=== PATIENT | female | born 1935 | race Caucasian/White ===

== ENCOUNTER 2017-03-21 21:32 | Observation (INO) ==
[2017-03-21 22:21] LABS: Prothrombin Time 10.2 Seconds (9.4-12.1)
[2017-03-21 22:22] LABS: Bilirubin,Urine Negative (Negative); Blood,Urine Negative (Negative); Clarity,Urine Clear (Clear); Color,Urine Yellow (Yellow); Glucose,Urine (UA) Normal (Normal); Ketones,Urine Negative (Negative); Leukocyte Esterase,Urine Trace (Negative); Nitrite,Urine Negative (Negative); Protein,Urine Negative (Neg-Trace); Specific Gravity,Urine 1.007 (1.010-1.025); Urobilinogen,Urine Normal (Normal)
[2017-03-21 22:23] LABS: Activated Partial Thrombo Time 30.6 Seconds (26.0-36.0)
[2017-03-21 22:24] LABS: Bacteria,Urine None Seen per hpf (None-Few); Hyaline Casts,Urine None Seen per lpf (None-Few); RBC,Urine 0-3 per hpf (0-3); Squamous Epithelial Cell,Urine Moderate per lpf (None-Few)
[2017-03-21 22:25] LABS: Basophils # 0.1 K/mcL (0.0-0.2); Basophils % 0.6 %; Eosinophils # 0.3 K/mcL (0.0-0.6); Hematocrit 47.7 % (35.3-44.9); Hemoglobin 15.3 g/dL (11.5-15.4); Immature Granulocytes % 0.4 % (0-4); Lymphocytes # 1.9 K/mcL (0.6-4.6); Lymphocytes % 18.3 %; Mean Corpuscular HGB Conc 32.1 g/dL (31.6-35.5); Mean Corpuscular Hemoglobin 28.5 pg (28.0-33.3); Mean Platelet Volume 10.4 fL (9.4-12.4); Monocytes # 1.1 K/mcL (0.0-1.3); Monocytes % 10.7 %; Neutrophils # 6.9 K/mcL (1.6-8.9); Platelet Count 224 K/mcL (140-400); Red Blood Count 5.36 M/mcL (3.82-4.97); Red Cell Distribution Width 15.3 % (11.5-14.5)
--- NOTE | 2017-03-21 22:25 | Emergency Department Note ---
Disposition Clinical Impression: Atrial fibrillation Qualifiers: Atrial fibrillation type: unspecified Qualified Code(s): I48.91 - Unspecified atrial fibrillation Chest pain Qualifiers: Chest pain type: unspecified Qualified Code(s): R07.9 - Chest pain, unspecified Disposition: Admitted As Inpatient Condition: Good Referrals: Majo Freedman CNP [Primary Care Provider] - Forms: ED Satisfaction Letter Time of Disposition: 23:16 Chest Pain HPI - General Chief Complaint: ED Chest Pain Stated Complaint: chest pain/high bp took nitro at 845 Time Seen by Provider: 03/21/17 21:44 Source: patient Mode of arrival: ambulatory Limitations: no limitations Vital Signs Reviewed: Yes Nursing Notes Reviewed: Yes - History of Present Illness HPI Narrative: Patient presents to the ED for the chief complaint of palpitations and chest pain. Patient states she was getting ready for bed this evening and laid down around 9 :00 and started feeling a heaviness or pressure in her lower sternum. She had no other symptoms. This is no shortness of breath, nausea, vomiting. No previous history of atrial fibrillation but has been having palpitations. Does have a previous history of coronary artery disease and high blood pressure, but no CHF. Severity scale (1-10): 4 - Related Data Home Medications Medication Instructions Recorded Confirmed Albuterol Sulfate [Albuterol 1 puff IH QID PRN 02/23/15 02/23/15 Inhaler] Aspirin Enteric Coated [Aspirin EC] 81 mg PO DAILY 02/23/15 02/23/15 Carvedilol [Coreg] 12.5 mg PO BIDWM 02/23/15 02/23/15 Docusate [Colace] 100 mg PO BID 02/23/15 02/23/15 Levothyroxine [Synthroid] 100 mcg PO 0630 02/23/15 02/23/15 Lisinopril [Zestril] 20 mg PO BID 02/23/15 02/23/15 Raloxifene [Evista] 60 mg PO DAILY 02/23/15 02/23/15 Simvastatin [Zocor] 20 mg PO HS 02/23/15 02/23/15 cloNIDine HCl [CloNIDine HCl] 0.1 mg PO BID PRN 02/23/15 02/23/15 Previous Rx's Medication Instructions Recorded Hydrocodone/Acetaminophen [[place] 0.5 - 1 each PO QID PRN #15 tablet 02/23/15 5-325 Tablet] Allergies Allergy/AdvReac Type Severity Reaction Status Date / Time No Known Allergies Allergy Verified 03/21/17 21:53 All systems ED: reviewed and negative except as stated. Constitutional: Denies: fever Eyes: Denies: vision change Cardiovascular: Reports: chest pain, palpitations. Denies: dyspnea on exertion Respiratory: Denies: dyspnea Gastrointestinal: Denies: abdominal pain, vomiting Chest Pain PMH - Past Medical History Medical history: Reports: cancer, CHF, coronary artery disease, hyperlipidemia, hypertension, myocardial infarction, thyroid disease Surgical history: Reports: coronary bypass (CABG), other Psychiatric history: Reports: no psych history - Social History Smoking Status: Never smoker Alcohol use: Reports: none Drug use: Reports: none Physical Exam - General Limitations: no limitations General appearance: alert, in no apparent distress - Head Head exam: atraumatic, normocephalic, normal inspection - Eye Eye exam: Present: normal appearance, PERRL, EOMI - ENT ENT exam: normal exam, normal oropharynx, mucous membranes moist - Neck Neck exam: Present: normal inspection, full ROM, trachea midline - Chest Chest inspection: Present: normal inspection, symmetric chest wall rise - Respiratory Respiratory exam: Present: normal lung sounds bilaterally - Cardiovascular Cardiovascular exam: Present: regular rate, irregular rhythm, normal heart sounds. Absent: normal rhythm - Abdominal Exam Abdominal exam: Present: soft, Non-Tender. Absent: tenderness, distention, guarding, rebound, rigidity - Extremities Exam Extremities exam: Present: normal inspection, full ROM, normal capillary refill. Absent: tenderness, pedal edema - Expanded Lower Extremity Exam Hip/Pelvis exam: Present: pelvis stable - Neurological Exam Neurological exam: Present: alert, oriented X3 - Psychiatric Psychiatric exam: Present: normal affect, normal mood - Skin Skin exam: Present: warm, dry, intact, normal color Course Course Narrative: patient with new onset a-fib which is rate controlled. Will call cards, get labs, and admit. - Consultations Consultation #1: spoke with Dr. Woo, wanted to anti-coagulate due to CHADS-VASC score of 5 and ATRIA of 7. Will give lovenox and admit. Vital Signs Temperature 97.7 F 03/21/17 21:50 Pulse Rate 99 03/21/17 21:50 Respiratory Rate 20 03/21/17 21:50 Blood Pressure 195/106 03/21/17 21:50 O2 Sat by Pulse Oximetry 96 03/21/17 21:50 Temperature 97.7 F 03/21/17 21:50 Pulse Rate 99 03/21/17 21:50 Respiratory Rate 20 03/21/17 21:50 Blood Pressure 195/106 03/21/17 21:50 O2 Sat by Pulse Oximetry 96 03/21/17 22:02 Oxygen Delivery Oxygen Delivery Room Air Chest Pain - Lab Data Result diagrams: 03/21/17 22:06 03/21/17 22:06 Lab Results 03/21/17 03/21/17 03/21/17 Range/Units 22:05 22:06 22:06 WBC 10.3 (4.3-11.1) K/mcL RBC 5.36 H (3.82-4.97) M/mcL Hgb 15.3 (11.5-15.4) g/dL Hct 47.7 H (35.3-44.9) % MCV 89.0 (83.0-100.0) fL MCH 28.5 (28.0-33.3) pg MCHC 32.1 (31.6-35.5) g/dL RDW 15.3 H (11.5-14.5) % Plt Count 224 (140-400) K/mcL MPV 10.4 (9.4-12.4) fL Immature Gran % 0.4 (0-4) % Seg Neutrophils % 67.0 % Lymphocytes % 18.3 % Monocytes % 10.7 % Eosinophils % 3.0 % Basophils % 0.6 % Neutrophils # 6.9 (1.6-8.9) K/mcL Lymphocytes # 1.9 (0.6-4.6) K/mcL Monocytes # 1.1 (0.0-1.3) K/mcL Eosinophils # 0.3 (0.0-0.6) K/mcL Basophils # 0.1 (0.0-0.2) K/mcL PT 10.2 (9.4-12.1) Seconds INR 1.0 APTT 30.6 (26.0-36.0) Seconds Sodium (136-145) mEq/L Potassium (3.5-4.5) mEq/L Chloride (98-109) mEq/L Carbon Dioxide (19-29) mEq/L BUN (7-20) mg/dL Creatinine (0.57-1.11) mg/dL Est GFR ( Amer) (> 60) Est GFR (Non-Af Amer) (> 60) BUN/Creatinine Ratio (6-26) Glucose (70-99) mg/dL Calculated Osmolality (280-300) Calcium (8.6-10.8) mg/dL Magnesium (1.6-2.6) mg/dL Troponin I (0-0.03) ng/mL TSH (0.350-4.840) mcIU/mL Urine Color Yellow (Yellow) Urine Clarity Clear (Clear) Urine pH 7.0 (5.0-8.0) pH Units Ur Specific [place] 1.007 L (1.010-1.025) Urine Protein Negative (Neg-Trace) mg/dL Urine Glucose (UA) Normal (Normal) mg/dL Urine Ketones Negative (Negative) mg/dL Urine Blood Negative (Negative) Urine Nitrite Negative (Negative) Urine Bilirubin Negative (Negative) Urine Urobilinogen Normal (Normal) mg/dL Ur Leukocyte Esterase Trace H (Negative) Urine Microscopic RBC 0-3 (0-3) per hpf Urine Microscopic WBC 3-5 H (0-3) per hpf Ur Squamous Epith Cells Moderate H (None-Few) per lpf Urine Bacteria None Seen (None-Few) per hpf Hyaline Casts None Seen (None-Few) per lpf Ur Culture Indicated? YES A (NO) 03/21/17 03/21/17 Range/Units 22:06 22:06 WBC (4.3-11.1) K/mcL RBC (3.82-4.97) M/mcL Hgb (11.5-15.4) g/dL Hct (35.3-44.9) % MCV (83.0-100.0) fL MCH (28.0-33.3) pg MCHC (31.6-35.5) g/dL RDW (11.5-14.5) % Plt Count (140-400) K/mcL MPV (9.4-12.4) fL Immature Gran % (0-4) % Seg Neutrophils % % Lymphocytes % % Monocytes % % Eosinophils % % Basophils % % Neutrophils # (1.6-8.9) K/mcL Lymphocytes # (0.6-4.6) K/mcL Monocytes # (0.0-1.3) K/mcL Eosinophils # (0.0-0.6) K/mcL Basophils # (0.0-0.2) K/mcL PT (9.4-12.1) Seconds INR APTT (26.0-36.0) Seconds Sodium 143 (136-145) mEq/L Potassium 3.7 (3.5-4.5) mEq/L Chloride 105 (98-109) mEq/L Carbon Dioxide 27 (19-29) mEq/L BUN 17 (7-20) mg/dL Creatinine 1.05 (0.57-1.11) mg/dL Est GFR ( Amer) > 60 (> 60) Est GFR (Non-Af Amer) 50 L (> 60) BUN/Creatinine Ratio 16 (6-26) Glucose 99 (70-99) mg/dL Calculated Osmolality 298 (280-300) Calcium 10.0 (8.6-10.8) mg/dL Magnesium 2.2 (1.6-2.6) mg/dL Troponin I 0.01 (0-0.03) ng/mL TSH 0.980 (0.350-4.840) mcIU/mL Urine Color (Yellow) Urine Clarity (Clear) Urine pH (5.0-8.0) pH Units Ur Specific [place] (1.010-1.025) Urine Protein (Neg-Trace) mg/dL Urine Glucose (UA) (Normal) mg/dL Urine Ketones (Negative) mg/dL Urine Blood (Negative) Urine Nitrite (Negative) Urine Bilirubin (Negative) Urine Urobilinogen (Normal) mg/dL Ur Leukocyte Esterase (Negative) Urine Microscopic RBC (0-3) per hpf Urine Microscopic WBC (0-3) per hpf Ur Squamous Epith Cells (None-Few) per lpf Urine Bacteria (None-Few) per hpf Hyaline Casts (None-Few) per lpf Ur Culture Indicated? (NO) S.B.A.R. - S.B.A.R. Situation: Demographics, MOA Background: Presenting Complaint, Relevant PMH, Meds, & Allergies Assessment: Vital Signs, Course and respsone to treatment, Exam Concerns, Patient/Family Expectation, Pertinant Lab Results, Outstanding Labs Recommendation: Barrier(s) to disposition, Recommendation based on pending studies, treatments, or consults [email or web address] Report Given to: Dr. Huy Lock Repor Time: 23:15
[2017-03-21 22:30] LABS: BUN/Creatinine Ratio 16 (6-26); Blood Urea Nitrogen 17 mg/dL (7-20); Carbon Dioxide 27 mEq/L (19-29); Chloride 105 mEq/L (98-109); Glucose 99 mg/dL (70-99); Magnesium 2.2 mg/dL (1.6-2.6); Osmolality,Calculated 298 (280-300); Potassium 3.7 mEq/L (3.5-4.5); Sodium 143 mEq/L (136-145); eGFR For African Americans > 60 (> 60); eGFR For Non-African Americans 50 (> 60)
[2017-03-21] MEDS ORDERED: *HR* Enoxaparin 60 MG/0.6 ML SYRINGE SQ STA (22:40)
--- NOTE | 2017-03-21 23:02 | Emergency Department Note ---
START Narrative - START START: I examined this patient and my medical decision-making was reviewed with the Resident Physician. I agree with the documented findings, disposition and treatment plan as described except to the extent set forth below. 82-year-old female presents with a new onset A. fib. Her rate is controlled at this time. We did consult with cardiology and they recommended Lovenox. Patient will need to be admitted for further workup. Her labs and chest x-ray are unremarkable.
--- NOTE | 2017-03-22 03:19 | Event Note ---
Date of Encounter: 03/22/17 Time of Encounter: 03:16 Patient and examined with medical device sales consultant. Patient was admitted for concern of atrial fibrillation. However I have reviewed a electrocardiogram and the monitor and I have not seen any evidence of atrial fibrillation. Patient does have an irregular heart rhythm which appears to be either due to wandering atrial pacemaker versus respiratory sinus arrhythmia. We check thyroid functions, echocardiogram. I will hold off anticoagulanting the patient.
[2017-03-22] MEDS ORDERED: Naloxone 0.4 MG/ML INJ IVP PRN (03:21)
[2017-03-22] MEDS ORDERED: 0.9 % Sodium Chloride 1,000 ML IVC SCH (03:30)
--- NOTE | 2017-03-22 03:56 | Internal Med History&Physical ---
Date of Encounter: 03/22/17 Time of Encounter: 01:00 Assessment and Plan (1) Irregular heart rhythm Current visit: Yes Status: Acute Patient had an irregular heart rhythm upon arrival to the emergency department. -EKG demonstrated an irregular rhythm, but it does appear that P waves are present. -Possible wandering atrial pacemaker or sinus arrhythmia. -Serial troponins 2. -Continuous telemetry. -TSH and free T4. -Potassium supplement, 10 mg. -Echocardiogram. (2) Chest pain Current visit: Yes Status: Acute Patient's chest pain was described as a heaviness in the lower portion of her sternum. -Since admission to the hospital, patient's chest pain has decided. -EKG did not show any evidence of ST elevation. -Patient does have a history of [place]. -Serial troponins will be drawn. -Continuous telemetry. Qualifiers: Chest pain type: unspecified Qualified Code(s): R07.9 - Chest pain, unspecified (3) Hypertension Current visit: Yes Status: Acute Patient has a known history of hypertension. -Patient is currently taking Coreg and lisinopril. -Patient's medications have not yet been reconciled, as they have not been able to confirm her current medication list. -Patient does not have up-to-date list at this time. -Obtain updated list from pharmacy in the morning. Qualifiers: Qualified Code(s): I10 - Essential (primary) hypertension (4) DVT prophylaxis Current visit: Yes Status: Acute Lovenox 40 mg daily. Internal Medicine - H&P: HPI Chief complaint: Chest pain Admitted From: Home History of present illness: Ms. Coyne is a 82 year old female with past medical history of CHF, CAD, hyperlipidemia, hypertension, [place], thyroid disease presented to the emergency department with the chief complaint of palpitations and chest pain. Patient notes that she was getting ready for bed during the evening and late her head down at approximately 9:00 he started to feel a heaviness or pressure in her lower sternum. Patient had no other symptoms. She did not having any nausea, vomiting, fever, chills, or shortness of breath. Upon arrival to the ER, chest x-ray and EKG were performed. Chest x-ray was negative, and an EKG showed an irregular rhythm which was initially believed to be atrial fibrillation. Per the recommendation of cardiology, patient was given Lovenox 50 mg subcutaneous. Patient has no history of irregular heartbeats. Upon further review of EKG, it appears that P waves are present. Diagnosis is likely wandering atrial pacemaker or sinus arrhythmia. Patient states that her pain has improved since admission. Patient is currently rate controlled. She has no complaints at this time. Past Med Surg Social Fam HX - Past Medical History Medical history: cancer, CHF, coronary artery disease, hyperlipidemia, hypertension, myocardial infarction, thyroid disease Psychiatric history: no psych history - Past Surgical History Surgical History: coronary bypass (CABG), other - Social History Smoking Status: Former smoker Smokeless Tobacco Status: No Alcohol use: none Drug use: none - Family History Mother Hx Family Endocrine Disorder: Yes (DIABETES MELLITUS.) Internal Medicine - H&P: Meds Albuterol Sulfate [Albuterol Inhaler] 1 puff IH QID PRN 02/23/15 [History] Aspirin Enteric Coated [Aspirin EC] 81 mg PO DAILY 02/23/15 [History] Carvedilol [Coreg] 12.5 mg PO BIDWM 02/23/15 [History] Docusate [Colace] 100 mg PO BID 02/23/15 [History] Hydrocodone/Acetaminophen [[place] 5-325 Tablet] 0.5 - 1 each PO QID PRN #15 tablet 02/23/15 [Rx] Levothyroxine [Synthroid] 100 mcg PO 0630 02/23/15 [History] Lisinopril [Zestril] 20 mg PO BID 02/23/15 [History] Raloxifene [Evista] 60 mg PO DAILY 02/23/15 [History] Simvastatin [Zocor] 20 mg PO HS 02/23/15 [History] cloNIDine HCl [CloNIDine HCl] 0.1 mg PO BID PRN 02/23/15 [History] 3 Allergy/AdvReac Type Severity Reaction Status Date / Time No Known Allergies Allergy Verified 03/21/17 21:53 All Systems PM: A 10-system review of systems was performed and is negative for pertinent findings except as documented above in the HPI. - Constitutional Constitutional: no chills, no fever(s), no night sweats - EENT Eyes: no change in vision, no discharge, no pain, no photophobia Ears: no ear discharge, no ear pain, no tinnitus Nose, mouth and throat: no dysphagia, no nasal discharge, no neck pain, no sore throat - Cardiovascular Cardiovascular ROS IM: no chest pain, no diaphoresis, no dyspnea, no lightheadedness, no palpitations, no syncope - Respiratory Respiratory: no cough, no dyspnea, no wheezing, no excessive phlegm production - Gastrointestinal Gastrointestinal: no abdominal pain, no diarrhea, no hematemesis, no hematochezia, no melena, no nausea, no vomiting - Genitourinary Genitourinary: no change in urinary stream, no dysuria, no flank pain, no hematuria - Musculoskeletal Musculoskeletal ROS IM: no numbness, no tingling - Integumentary Integumentary IM: no rash, no unusual bruising - Neurological Neurological ROS: no confusion, no convulsions, no focal weakness, no numbness, no tingling, no tremor(s) - Hematologic/Lymphatic Hematologic/Lymphatic: no easy bruising - Constitutional Vitals: Temp Pulse Resp BP Pulse Ox 97.7 F 74 15 144/77 94 03/22/17 03:14 03/22/17 03:14 03/22/17 03:14 03/22/17 03:14 03/22/17 03:14 - Head Head exam: Present: atraumatic, normocephalic - Eye Eye exam: Present: PERRL, conjuntiva pink, sclera anicteric Pupils: Present: PERRL - Neck Neck exam general surgery: Present: supple, trachea midline. Absent: lymphadenopathy - Respiratory Respiratory exam: Present: CTAB. Absent: accessory muscle use, rales, rhonchi, wheezes - Cardiovascular Cardiovascular exam: Present: RRR, +S1, +S2. Absent: diastolic murmur, gallop, rubs, systolic murmur - GI/Abdominal GI/Abdominal exam: Present: normal bowel sounds, soft, no peritoneal signs. Absent: distended, tenderness - Extremities Exam Extremities exam: Present: warm, radial pulses palpable and symmetrical. Absent : calf tenderness, cyanotic, pedal edema - Neurological Exam Neurological exam: Present: CN II-XII intact, oriented X3, no focal deficits. Absent: pronater drift, facial droop, speech deficit - Skin Skin exam: Present: dry, intact Internal Med - H&P Results - Labs CBC & Chem 7: 03/21/17 22:06 03/21/17 22:06
[2017-03-22 05:14] LABS: BUN/Creatinine Ratio 16 (6-26); Blood Urea Nitrogen 15 mg/dL (7-20); Calcium 9.2 mg/dL (8.6-10.8); Carbon Dioxide 27 mEq/L (19-29); Chloride 107 mEq/L (98-109); Chol/HDL Ratio 2.3 (0-4.9); Cholesterol 110 mg/dL (< 200); Glucose 94 mg/dL (70-99); HDL Cholesterol 47 mg/dL (40-59); LDL Cholesterol,Calculated 45 mg/dL (0-99); Osmolality,Calculated 295 (280-300); Potassium 3.5 mEq/L (3.5-4.5); Sodium 142 mEq/L (136-145); Triglycerides 89 mg/dL (< 150); eGFR For African Americans > 60 (> 60); eGFR For Non-African Americans 59 (> 60)
[2017-03-22 05:37] LABS: Thyroid Stimulating Hormone 0.51 mcIU/mL (0.350-4.840)
[2017-03-22] MEDS ORDERED: *HR* Enoxaparin 40 MG/0.4 ML SYRINGE SQ SCH (06:00)
[2017-03-22] MEDS ORDERED: Aspirin Enteric Coated 81 MG Tablet PO SCH (09:00)
--- NOTE | 2017-03-22 09:40 | Event Note ---
Date of Encounter: 03/22/17 Time of Encounter: 09:36 - Cardiology Event Note Cardiology consulted for atrial fibrillation. EKG reviewed with resident and Dr. Lawton. EKG shows SR with frequent PAC. 24 hour telemetry review completed. No afib seen. Patiyunier has NSR with PAC. No bradycardia or pauses. Recommended increase in beta-chris and out-pt f/u. [facility] will coordinate f/u in 2 weeks. Please call with changes or questions.
--- NOTE | 2017-03-22 11:32 | Discharge Summary ---
<Rafaela Oakley - Last Filed: 03/22/17 11:52> Date of Encounter: 03/22/17 Time of Encounter: 11:30 - Discharge Diagnosis (1) Irregular heart rhythm Priority: Primary Status: Acute (2) Chest pain Priority: Primary Status: Resolved Comments: chest pressure Qualifiers: Chest pain type: unspecified Qualified Code(s): R07.9 - Chest pain, unspecified; R07.8 - Other chest pain (3) Hypertension Priority: Secondary Status: Chronic Qualifiers: Hypertension type: essential hypertension Qualified Code(s): I10 - Essential (primary) hypertension - Discharge Medications Prescriptions: Carvedilol [Coreg] 25 mg PO BIDWM #60 tablet Nitroglycerin [Nitrostat] 0.4 mg SL Q5-6MIN PRN #1 bottle PRN Reason: Chest Pain Home Medications: Albuterol Sulfate [Albuterol Inhaler] 1 puff IH QID PRN 02/23/15 [History] Aspirin Enteric Coated [Aspirin EC] 81 mg PO DAILY 02/23/15 [History] Levothyroxine [Synthroid] 100 mcg PO 0630 02/23/15 [History] Lisinopril [Zestril] 20 mg PO BID 02/23/15 [History] Raloxifene [Evista] 60 mg PO DAILY 02/23/15 [History] Simvastatin [Zocor] 20 mg PO HS 02/23/15 [History] Carvedilol [Coreg] 25 mg PO BIDWM #60 tablet 03/22/17 [Rx] Isosorbide MONOnitrate (24 HR) [Imdur] 30 mg PO DAILY 03/22/17 [History] Nitroglycerin [Nitrostat] 0.4 mg SL Q5-6MIN PRN #1 bottle 03/22/17 [Rx] amLODIPine [Norvasc] 5 mg PO DAILY 03/22/17 [History] Allergies/Adverse Reactions: 3 Allergy/AdvReac Type Severity Reaction Status Date / Time No Known Allergies Allergy Verified 03/21/17 21:53 Procedures/tests Complete & Pending: Procedures Performed prior 72 hours Category Date Time Status EV echocardiogram Routine Y 03/22/17 03:32 Ordered Date of admission: 03/22/17 03:22 Primary care physician: Majo Freedman CNP Discharging clinician: Rafaela Oakley Anticipated date of discharge: 03/22/17 - Patient Status Disposition: Home, Self-Care Condition: Good Functional capacity at discharge: independent ambulation Overall status at discharge: patient is back to baseline - Discharge Instructions Instructions: Atrial Fibrillation (DC), Chest Pain (DC), Chronic Hypertension ( DC) Follow Up With: Majo Freedman CNP [Primary Care Provider] - 04/01/17 8:00 am Topher Minaya DO [Partnered Physician] - (2 weeks) - Diet and Activity Diet: low fat, low cholesterol Hospital course: Ms. Coyne is a 82 year old female admitted for chest pressure and palpitations. She was seen by cardiology who read her EKG as SR with frequent PAC. 24 hour telemetry review showed no a fib, NSR with PAC. No bradycardia or pauses. Cardiology recommended increasing beta-chris dose and outpatient follow-up in 2 weeks. - Time Spent with Patient Total time spent providing and/or coordinating discharge services: - Constitutional Vitals: Temp Pulse Resp BP Pulse Ox 98.4 F 98 16 153/75 93 03/22/17 07:50 03/22/17 07:50 03/22/17 07:50 03/22/17 07:50 03/22/17 08:29 General appearance: Present: pleasant, no acute distress, answers questions appropriately - Head Head exam: Present: atraumatic, normocephalic - Eye Eye exam: Present: PERRL, conjuntiva pink, sclera anicteric Pupils: Present: PERRL - Neck Neck exam general surgery: Present: supple, trachea midline - Respiratory Respiratory exam: Present: CTAB. Absent: accessory muscle use, rales, rhonchi, wheezes - Cardiovascular Cardiovascular exam: Present: irregular rhythm, +S1, +S2. Absent: diastolic murmur, systolic murmur, tachycardia - GI/Abdominal GI/Abdominal exam: Present: normal bowel sounds, soft, no peritoneal signs. Absent: distended, tenderness - Extremities Exam Extremities exam: Present: warm. Absent: calf tenderness, cyanotic, pedal edema - Neurological Exam Neurological exam: Present: alert, CN II-XII intact. Absent: facial droop, speech deficit - Skin Skin exam: Present: dry, intact, normal color, warm <Marcio Chen - Last Filed: 03/22/17 17:14> Date of Encounter: 03/22/17 - Discharge Diagnosis (1) PAC (premature atrial contraction) Priority: Primary Status: Acute (2) Palpitations Priority: Secondary Status: Acute (3) Hypertension Status: Chronic Qualifiers: Hypertension type: essential hypertension Qualified Code(s): I10 - Essential (primary) hypertension (4) Chest pain Status: Resolved Qualifiers: Chest pain type: other chest pain Qualified Code(s): R07.89 - Other chest pain; R07.8 - Other chest pain (5) Coronary artery disease Priority: Secondary Status: Chronic Qualifiers: Coronary Disease-Associated Artery/Lesion type: [place] artery [place] vs. transplanted heart: [place] heart Associated angina: without angina Qualified Code(s): I25.10 - Atherosclerotic heart disease of [place] coronary artery without angina pectoris (6) Hyperlipidemia Priority: Secondary Status: Chronic Qualifiers: Hyperlipidemia type: mixed hyperlipidemia Qualified Code(s): E78.2 - Mixed hyperlipidemia (7) Hypothyroid Priority: Secondary Status: Chronic Qualifiers: Hypothyroidism type: acquired Qualified Code(s): E03.9 - Hypothyroidism, unspecified (8) CHF (congestive heart failure) Priority: Secondary Status: Chronic Qualifiers: Congestive heart failure type: diastolic Congestive heart failure chronicity: chronic Qualified Code(s): I50.32 - Chronic diastolic (congestive ) heart failure Date of admission: 03/22/17 03:22 Primary care physician: Majo Freedman [facility] course: Ms. Coyne is a 82 year old female - Time Spent with Patient Total time spent providing and/or coordinating discharge services: - Constitutional Vitals: Temp Pulse Resp BP Pulse Ox 97.9 F 80 16 107/62 93 03/22/17 11:48 03/22/17 11:48 03/22/17 11:48 03/22/17 11:48 03/22/17 11:48 - Attending Attestation I examined this patient and my medical decision-making was reviewed with the Resident Physician on 03/22/17. I agree with the documented findings, disposition and treatment plan as described except to the extent set forth below. Ms Coyne has been placed in observation for presumed atrial fibrillation and chest heaviness. She noted palpitations. Chest pressure improved. Review of EKG and rhythm strips shows sinus rhythm with PACs and not atrial fibrillation. She is afebrile with stable vitals. She is ready for discharge home with outpatient follow up with cardiology in two weeks. Exam Alert. Comfortable Heart irreg - monitor with PACs Lungs clear Abd soft Plan D/C home today Follow up with PCP and cardiology. Refused flu vaccine
[2017-03-22 11:49] VITALS: BP 107/62
--- NOTE | 2017-03-22 18:34 | Electrocardiograph Report ---
[place] [id number] Test Date: 2017-03-21 Pat Name: Maryanne Coyne Department: 104 Room: 3B Gender: F Supervisor [facility]: : 1935 Requested By: Fidel Sanchez Order Number: [id number] Reading MD: Topher Minaya DO Measurements Intervals [place] Rate: 103 P: IA: 0 QRS: 4 QRSD: 96 T: 53 QT: 354 QTc: 414 Interpretive Statements Sinus rhythm with frequnt PACs Nonspecific ST-T changes Electronically Signed On 03-22-2017 18:33:05 EDT by Topher Minaya DO
== END 2017-03-22 13:20 | disposition home or self-care (01) ==
LOC: 3BNU 21:32 → EMEROO 21:32 → 3BNU 23:42 → SUATTDRO 03-22 03:22
PROVIDERS: ADMIT Hospitalist; ATTEND Internal Medicine